=== PATIENT | male | born 1960 ===

== ENCOUNTER → 2024-12-19 08:00 | Outpatient (CLI) | payer OTHER ==
[2024-12-19 09:10] LABS: BASO % 0.4 % (0.1-1.2); EOS # 0.11 (0.04-0.54); EOS % 2.2 % (0.7-7.0); LYMPH # 1.66 (1.18-3.74); LYMPH % 33.6 % (19.3-53.1); MEAN PLATELET VOLUME 10.20 fl (9.4-12.4); MONO # 0.37 (0.24-0.82); MONO % 7.5 % (4.7-12.5); NEUT # 2.76 (1.56-6.13); NEUT % 55.9 % (34.0-71.1); RED CELL DISTRIBUTION WIDTH 12.8 % (11.6-14.4)
[2024-12-19 09:19] LABS: ERYTHROCYTE SEDIMENTATION RATE 15 mm/hr (0-20)
[2024-12-19 09:48] LABS: ALT/SGPT 27.0 U/L (12-78); AST/SGOT 19.0 U/L (15-37); BILIRUBIN TOTAL 0.4 mg/dL (0.3-1.2); BUN CREA RATIO 30.0 (7.0-25.0); CHOL HDL RATIO 4.5 (0-5.0); CREATININE SERUM 0.6 mg/dL (0.70-1.30); GFR 135.64; GLOBULINA 3.2 G/DL (2.4-3.5); GLUCOSE FASTING 98.0 mg/dL (65-100); HDL 33.0 mg/dl (40-60); LDL 88.0 mg/dl (0-130); OSMOLALITY SERUM 291.0 MOSM/KG (275-295); TSH 2.93 uIU/mL (0.358-3.74); VLDL 28.0 (0-39)
[2024-12-19 10:31] LABS: URINE APPEARANCE Clear; URINE BILIRRUBIN Negative (NEGATIVE); URINE BLOOD Negative; URINE COLOR Yellow; URINE GLUCOSE Negative (NEGATIVE); URINE KETONE Negative (NEGATIVE); URINE LEUKOCYTE Negative; URINE NITRATE Negative; URINE PROTEIN Negative (NEGATIVE); URINE UROBILINOGEN 1.0 E.U./dl
[2024-12-19 10:56] LABS: URINE BACTERIA 1.1 uL (0.0-1933); URINE CAST 0.14 uL (0.0-1.40); URINE EPITHELIAL CELLS 0.1 uL (0.0-38.8); URINE RBC 1.0 uL (0.0-20.8); URINE WBC 0.4 uL (0.0-23.2)
== END | disposition home or self-care (01) ==
LOC: LAB 08:00
PROVIDERS: ATTEND Internal Medicine Rheumatology
DX: M06.4 Inflammatory polyarthropathy (principal); E03.2 Hypothyroidism due to medicaments and other exogenous substances; E78.2 Mixed hyperlipidemia; M35.1 Other overlap syndromes; M05.79 Rheumatoid arthritis with rheumatoid factor of multiple sites without organ or systems involvement; E55.9 Vitamin D deficiency, unspecified